=== PATIENT | female | born 1960 | race Caucasian/White ===

== ENCOUNTER 2016-09-01 12:07 | Emergency (ER) | payer OTHER ==
[~2016-09-01 12:07] MED LIST: ALEVE220 M1 PO; ALPRAZOLAM0.25 M1 PO; AMOXICILLIN500 M2 PO; ATENOLOL100 M1 PO; AUGMENTIN 875 M1 TAB PO; AUGMENTIN 875875 MG PO; BIOTENE473 ML PO; BISACODYL5 M1 PO; BLM PO; CHANTIX STARTING1 MG PO; CLEOCIN HCL300 MG PO; CYANOCOBAL1000 MCG/2 IM; CYMBALTA30 M1 PO; DIAZEPAM10 MG PO; HYDROCHLOROTH12.5 M3 PO; HYDROMORPHONE HC2 MG PO; IBUPROFEN600 M1 PO; MARINOL2.5 M1 PO; MORPHINE SU; OXYCODONE5 MG PO; PERCOCET 5-3251 EACH PO; PRINIVIL10 M1 PO; SAVELLA 50MG50 MG PO; SENNA PLUS TAB1 EACH PO; TRAMADOL-ACETA1 EACH PO; ZOLPIDEM TARTRA10 M1 PO
--- NOTE | 2016-09-01 12:58 | ED GENERAL ADULT ---
History of Present Illness General Chief Complaint: Chest Pain Stated Complaint: CHEST PAIN, SOB Source: patient, friend Exam Limitations: poor historian Vital Signs & Intake/Output Vital Signs & Intake/Output Vital Signs Date Time Temp Pulse Resp B/P Pulse O2 O2 Flow FiO2 Ox Delivery Rate 09/01 1627 97.0 72 18 142/81 99 Room Air 09/01 1443 96.8 74 20 122/81 100 Room Air 09/01 1308 95 Room Air 09/01 1216 97.1 99 18 142/87 100 Room Air Allergies Coded Allergies: NO KNOWN ALLERGIES (03/03/16) clams (03/05/16) Reconcile Medications Alprazolam 0.25 MG TABLET 1 TAB PO BIDP PRN ANXIETY (Reported) Amoxicillin/Potassium Clav (Augmentin 875-125 Tablet) 875 MG-125 MG TABLET 1 TAB PO BID PNEUMONIA Atenolol 100 MG TABLET 1 TAB PO DAILY HIGH BLOOD PRESSURE PLEASE TAKE IT IF BP IS > 100/80, AND PULSE >60 Cyanocobalamin (Vitamin B-12) (Cyanocobalamin Injection) 1,000 MCG/ML VIAL 1 ML IM Q30D SUPPLEMENT (Reported) Diazepam 10 MG TABLET 1 TAB PO QPM SLEEP (Reported) Duloxetine Hydrochloride (Cymbalta) 30 MG CAPSULE.DR 30 MG PO DAILY depression Hydrochlorothiazide 12.5 MG CAPSULE 1 CAP PO DAILY HIGH BLOOD PRESSURE ( Reported) Lisinopril (Prinivil) 10 MG TABLET 1 TAB PO DAILY HEART (Reported) Naproxen Sodium (Aleve) 220 MG CAPSULE 2 TAB PO DAILY PRN PAIN (Reported) Oxycodone HCl 5 MG TABLET 1 TAB PO Q4-6 PAIN (Reported) Tramadol HCl/Acetaminophen (Tramadol-Acetaminophn 37.5-325) 37.5 MG-325 MG TABLET 1 TAB PO Q6 PAIN (Reported) Zolpidem Tartrate 10 MG TABLET 1 TAB PO QPM SLEEP (Reported) Triage Note: PT TO TRIAGE WITH MID STERNAL HEAVINESS AND PAIN SINCE THIS MORNING. PT HAS A EXTENSIVE HX INCLUDING 2 LOBES REMVOED FROM RIGHT LUNG DUE TO CA. PT STATES SHE HAS BEEN SOB INCREASING ON EXERTION SICNE . PT DENIES FEVERS, BUT HAS A CHRONIC COUGH. PT BROUGHT DIRECTLY TO 8 AFETR EKG. PT HAD DENTAL WORK ON MONDAY AND HAS HAD POOR PO INTAKE DUE TO PAIN. PT STATES SHE HAS A HX OF KIDNEY FAILURE DUE TO SIMILAR SITUATION TODAY Triage Nurses Notes Reviewed? yes Onset: Abrupt Duration: day(s): Timing: recent history HPI: 09/01/16 56-year-old female presents to the emergency department complaining of chest pain and difficulty breathing. The patient has a history of chronic pain and she has a pain pump stimulator. She also has poor dentition. She status post screws inserted into her lower jaw. The onset of the symptoms were abrupt, the duration was 12 hours ago, the severity is significant as her symptoms required to come to the emergency department for care. She has jaw pain, difficulty breathing, and chest wall pain. Past History Travel History Traveled to [place] past 21 day No Medical History Any Pertinent Medical History? see below for history Neurological: migraine Cardiovascular: hypertension Respiratory: COPD (not on home oxygen), pneumonia Musculoskeletal: rheumatoid arthritis, fibromyalgia chronic hip pain pain pump in her right lower quadrant of abdomen Psychiatric: anxiety Endocrine: osteoporosis Blood Disorders: anemia, LOW IRON Cancer(s): lung cancer (adenocarcinoma) Other Medical Hx: History of shingles History of MRSA: No History of VRE: No History of CDIFF: No Pneumonia Vaccine: 03/12/14 Surgical History Surgical History: hip replacement (both. In 2000), hysterectomy, lung cancer status post right upper lobe wedge resection in 2004 Psychosocial History Who do you live with Spouse Services at Home None What is your primary language [place] Family History Family History, If Any: MOTHER Cervical cancer FH: diabetes mellitus FATHER FH: COPD (chronic obstructive pulmonary disease) FH: rheumatoid arthritis Ischemic heart disease (IHD) Hx Contributory? No Review of Systems Review of Systems Constitutional: Denies: fever. EENTM: Reports: mouth pain, tooth pain. Denies: visual changes. Respiratory: Reports: see HPI. Cardiovascular: Reports: see HPI. GI: Denies: abdominal pain. Genitourinary: Reports: no symptoms. Musculoskeletal: Reports: no symptoms. Skin: Denies: rash. Neurological/Psychological: Reports: no symptoms. Hematologic/Endocrine: Reports: no symptoms. Physical Exam Physical Exam General Appearance: alert, awake, anxious, mild distress Head: tenderness, pain to the lower floor the mouth anteriorly, no abscess, no brawny edema, no tongue protrusion Eyes: Bilateral: normal appearance, PERRL, EOMI. Ears, Nose, Throat: normal pharynx Neck: normal inspection, supple, full range of motion Respiratory: normal breath sounds, chest non-tender, no respiratory distress Cardiovascular: regular rate/rhythm Peripheral Pulses: 4+ radial (R), 4+ radial (L) Gastrointestinal: soft, non-tender Back: decreased range of motion Extremities: normal range of motion Neurologic/Psych: no motor/sensory deficits, awake, alert, oriented x 3 Skin: intact, normal color, warm/dry Core Measures ACS in differential dx? No CVA/TIA Diagnosis: No Severe Sepsis Present: No Septic Shock Present: No Progress Differential Diagnoses I considered the following diagnoses in my evaluation of the patient: [Acute coronary syndrome, pneumonia, dehydration, abscess] Plan of Care: Orders Procedure Date/time Status EKG 09/01 1708 Active TROPONIN LEVEL 09/01 1251 Complete PROTHROMBIN TIME 09/01 1251 Complete D-DIMER 09/01 1251 Complete COMPREHENSIVE METABOLIC PANEL 09/01 1251 Complete CBC WITHOUT DIFFERENTIAL 09/01 1251 Complete EKG 09/01 1207 Active Laboratory Tests 09/01/16 1258: Anion Gap 14, Estimated GFR 43 L, BUN/Creatinine Ratio 33.1 H, Glucose 115 H, Calcium 9.6, Total Bilirubin 0.5, AST 23, ALT 28, Alkaline Phosphatase 117, Troponin I < 0.01, Total Protein 9.4 H, Albumin 4.0, Globulin 5.4 H, Albumin/ Globulin Ratio 0.7 L, PT 13.7 H, INR 1.31 H, D-Dimer 860 H, CBC w Diff NO MAN DIFF REQ, RBC 4.13 L, MCV 75.3 L, MCH 24.0 L, RDW 16.5 H, MPV 8.4, Gran % 74.8, Lymphocytes % 16.4 L, Monocytes % 7.8, Eosinophils % 0.5, Basophils % 0.5, Absolute Granulocytes 3.3, Absolute Lymphocytes 0.7 L, Absolute Monocytes 0.3, Absolute Eosinophils 0, Absolute Basophils 0, PUBS MCHC 31.9 L PATIENT: NIRMAL JEREZ PRESENT AGE: 56 PATIENT ACCOUNT NO: [id number] : 62 LOCATION: [facility] ORDERING PHYSICIAN: ARSENIO KAUR DO SERVICE DATE: 09/01/16-1441 EXAM TYPE: CAT - CTA CHEST-PULMONARY EMBOLISM EXAMINATION: CT ANGIOGRAM OF THE CHEST WITH AND WITHOUT CONTRAST (CT PULMONARY ANGIOGRAM FOR PE) CLINICAL INFORMATION: Elevated d-dimer. Shortness of breath. COMPARISON: Portions of a previous chest CT 08/25/15 TECHNIQUE: Prior to contrast administration, noncontrast localization images were obtained. Subsequently, multidetector volumetric imaging was performed from the thoracic inlet to below the diaphragms following the administration of 81 mL Optiray 350 intravenous contrast. No contrast reaction reported Sagittal, coronal, and MIP oblique sagittal reformatted images were obtained on the CT workstation, uploaded to PACS, and reviewed. 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 Irregular opacity periphery right midlung. QUALITY OF STUDY/CONTRAST BOLUS: Satisfactory. PULMONARY ARTERIES: No pulmonary embolus demonstrated THORACIC AORTA: No thoracic aortic aneurysm or dissection demonstrated. The enhancement timing was not optimal for the aorta. LUNG: There appears to be metallic suture in the medial right upper chest. This may represent findings from right upper lobectomy or partial pulmonary resection. The trachea is deviated to the right superiorly. There is some irregularity of the right mainstem bronchus. There is irregular density in the right apex with bronchiectasis and masslike components. There are areas of airway thickening and irregular parenchymal density in the right midlung. There are some areas of airway thickening and tree-in-bud opacity in the ventral aspect of the right lower lung. There are some apical opacities on the left. The masslike and irregular opacities in the right apex appears similar to the previous study. The densities in the right midlung appears similar. The infiltrates with airway thickening and tree-in-bud opacity in the most ventral lower right lung are new since 08/25/15. The left apical changes are similar to the previous study. A small pleural-based area of thickening posterolaterally in the left mid chest is unchanged (series 5, image 23). PLEURA: As described there is extensive irregular pleural thickening in the apices greater on the right. There is no significant pleural fluid. MEDIASTINUM: The upper mediastinum is shifted to the right. No measurable mediastinal or hilar adenopathy. No pericardial fluid. No definite abnormality of the esophagus. No evidence of septal bowing or right heart strain. CHEST WALL/AXILLA: There is severe pectus excavatum which deforms the heart. There is a catheter within the lower thoracic spinal canal. There is a small amount of gas within some of the vessels in the right axilla. This may be iatrogenic. OSSEOUS STRUCTURES: No associated bone destruction in the regions of apical thickening. UPPER ABDOMEN: Limited assessment. No suspicious mass demonstrated No reflux of contrast into the hepatic veins to suggest elevated right heart pressures. (ARSENIO KAUR DO) Initial ED EKG: SINUS TACH, NSST Prior EKG: unchanged Repeat EKG: unchanged Departure Departure Disposition: HOME OR SELF CARE Condition: Stable Clinical Impression Primary Impression: Chest wall pain Secondary Impressions: Dehydration, Pneumonia Referrals: VALERI ROSSI,EDMOND Johnson (PCP/Family) Departure Forms: Customer Survey General Discharge Information Prescriptions: Current Visit Scripts Amoxicillin/Potassium Clav (Augmentin 875-125 Tablet) 1 TAB PO BID #20 TAB Comments 09/01/16 5:23 PM Patient's labs reveal dehydration. Troponin is negative, d-dimer was elevated; but CTA was negative for PE. The patient did receive a full liter of IV fluids before the CTA. The pain had started more than 12 hours prior to arrival. Second EKG is unchanged. I will treat her with Augmentin. She will follow-up with her doctor on Monday, drink lots of fluids, continue her pain medication. Return to the ED if worse. Critical Care Note Critical Care Note Critical Care Time: non-applicable
[2016-09-01 13:12] LABS: ABSOLUTE BASOPHIL COUNT 0 /CUMM (0.0-0.2); ABSOLUTE EOSINOPHIL COUNT 0 /CUMM (0.0-0.7); ABSOLUTE GRANULOCYTE CT 3.3 /CUMM (1.4-6.5); ABSOLUTE LYMPH COUNT 0.7 /CUMM (1.2-3.4); ABSOLUTE MONOCYTE COUNT 0.3 /CUMM (0.10-0.60); BASOPHIL % 0.5 % (0.0-2.0); EOSINOPHIL % 0.5 % (0-5); GRANULOCYTE % 74.8 % (42.2-75.2); HEMATOCRIT 31.1 % (37-47); MEAN CORPUSCULAR HGB CONC 31.9 G/DL (33.0-37.0); MEAN CORPUSCULAR VOLUME 75.3 FL (81.0-99.0); MEAN PLATELET VOLUME 8.4 FL (7.4-10.4); PLATELET COUNT 281 /CUMM (130-400); RBC DISTRIBUTION WIDTH 16.5 % (11.5-14.5); RED BLOOD CELL CT 4.13 /CUMM (4.20-5.40); WHITE BLOOD CELL COUNT 4.4 /CUMM (4.8-10.8)
[2016-09-01 13:19] LABS: PT 13.7 SEC (9.4-12.5)
--- NOTE | 2016-09-01 14:03 | RADIOLOGY REPORT ---
EXAMINATION: XR PORTABLE CHEST CLINICAL INFORMATION: Shortness of breath COMPARISON: Chest radiograph 11/27/[address] chest 08/25/2015. TECHNIQUE: Portable AP 80 degrees upright view of the chest was obtained. FINDINGS: The cardiac silhouette is at the upper limits of normal in size, unchanged. The focal right mid lung and right apical scarring and elevation of the right hilum is similar to 11/27/2014. Stable tenting of the right hemidiaphragm. No acute consolidation or atelectasis is seen. IMPRESSION: Chronic right mid and upper lung changes with volume loss. No superimposed consolidation or atelectasis is seen.
[2016-09-01] MEDS ORDERED: OXYCODONE HCL5 M1 PO (14:05)
[2016-09-01] MEDS ORDERED: DIAZEPAM10 M1 PO (14:05)
[2016-09-01 16:27] VITALS: BP 142/81
--- NOTE | 2016-09-01 16:40 | CT SCAN REPORT ---
EXAMINATION: CT ANGIOGRAM OF THE CHEST WITH AND WITHOUT CONTRAST (CT PULMONARY ANGIOGRAM FOR PE) CLINICAL INFORMATION: Elevated d-dimer. Shortness of breath. COMPARISON: Portions of a previous chest CT 08/25/15 TECHNIQUE: Prior to contrast administration, noncontrast localization images were obtained. Subsequently, multidetector volumetric imaging was performed from the thoracic inlet to below the diaphragms following the administration of 81 mL Optiray 350 intravenous contrast. No contrast reaction reported Sagittal, coronal, and MIP oblique sagittal reformatted images were obtained on the CT workstation, uploaded to PACS, and reviewed. 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 Irregular opacity periphery right midlung. QUALITY OF STUDY/CONTRAST BOLUS: Satisfactory. PULMONARY ARTERIES: No pulmonary embolus demonstrated THORACIC AORTA: No thoracic aortic aneurysm or dissection demonstrated. The enhancement timing was not optimal for the aorta. LUNG: There appears to be metallic suture in the medial right upper chest. This may represent findings from right upper lobectomy or partial pulmonary resection. The trachea is deviated to the right superiorly. There is some irregularity of the right mainstem bronchus. There is irregular density in the right apex with bronchiectasis and masslike components. There are areas of airway thickening and irregular parenchymal density in the right midlung. There are some areas of airway thickening and tree-in-bud opacity in the ventral aspect of the right lower lung. There are some apical opacities on the left. The masslike and irregular opacities in the right apex appears similar to the previous study. The densities in the right midlung appears similar. The infiltrates with airway thickening and tree-in-bud opacity in the most ventral lower right lung are new since 08/25/15. The left apical changes are similar to the previous study. A small pleural-based area of thickening posterolaterally in the left mid chest is unchanged (series 5, image 23). PLEURA: As described there is extensive irregular pleural thickening in the apices greater on the right. There is no significant pleural fluid. MEDIASTINUM: The upper mediastinum is shifted to the right. No measurable mediastinal or hilar adenopathy. No pericardial fluid. No definite abnormality of the esophagus. No evidence of septal bowing or right heart strain. CHEST WALL/AXILLA: There is severe pectus excavatum which deforms the heart. There is a catheter within the lower thoracic spinal canal. There is a small amount of gas within some of the vessels in the right axilla. This may be iatrogenic. OSSEOUS STRUCTURES: No associated bone destruction in the regions of apical thickening. UPPER ABDOMEN: Limited assessment. No suspicious mass demonstrated No reflux of contrast into the hepatic veins to suggest elevated right heart pressures. IMPRESSION: No pulmonary embolus demonstrated. There are areas of lung destruction and presumed postinflammatory scarring with volume loss in the apices greater on the right. I suspect previous surgery on the right. There is an area of probable acute pneumonia in the ventral lower right lung which was not present 08/25/15. Recommend optimal medical management and follow-up chest CT in 3-6 months VTE: negative
[2016-09-01] MEDS ORDERED: AUGMENTIN 875-1 EACH PO (17:26)
== END 2016-09-01 17:55 ==
LOC: ERH 12:07
PROVIDERS: Emergency Medicine
DX: J18.9 Pneumonia, unspecified organism (principal); E86.0 Dehydration; R07.89 Other chest pain
CPT/HCPCS: 93005; 93010; 96374

== ENCOUNTER 2017-07-09 11:40 | Observation (INO) | payer OTHER ==
[~2017-07-09] VITALS: Ht 157.5 cm; Wt 39.5 kg
[~2017-07-09 11:40] MED LIST changes: +AUGMENTIN 875-1 EACH PO; +DIAZEPAM10 M1 PO; +OXYCODONE HCL5 M1 PO
--- NOTE | 2017-07-09 13:05 | ED CARDIAC/CP/PALPITATIONS ---
History of Present Illness General Chief Complaint: General Adult Stated Complaint: "SICK", CHEST TIGHTNESS, +V Source: patient, family, old records Exam Limitations: no limitations Vital Signs & Intake/Output Vital Signs & Intake/Output Vital Signs Date Time Temp Pulse Resp B/P B/P Pulse O2 O2 Flow FiO2 Mean Ox Delivery Rate 07/10 0925 162/60 07/10 0620 98.4 50 20 148/80 99 Room Air 07/09 2247 98.1 52 20 164/86 99 Room Air 07/09 1827 98.4 56 20 156/80 100 Room Air 07/09 1704 98.5 62 20 128/70 100 Room Air 07/09 1455 97.8 65 20 168/85 97 Room Air ED Intake and Output 07/10 0000 07/09 1200 Intake Total 640 Output Total Balance 640 Intake, IV 400 Intake, Oral 240 Patient 32.205 kg Weight Weight Bed scale Measurement Method Allergies Coded Allergies: clams (UNKNOWN 07/09/17) Reconcile Medications Alprazolam 0.25 MG TABLET 1 TAB PO BIDP PRN ANXIETY (Reported) Dronabinol (Marinol) 10 MG CAPSULE 1 CAP PO BID STIMULANT (Reported) Hydrochlorothiazide 12.5 MG CAPSULE 1 CAP PO DAILY HIGH BLOOD PRESSURE ( Reported) Lisinopril 20 MG TABLET 1 TAB PO DAILY HTN (Reported) Naproxen Sodium (Aleve) 220 MG CAPSULE 2 TAB PO DAILY PRN PAIN (Reported) Oxycodone HCl 5 MG TABLET 1 TAB PO Q4-6 PAIN (Reported) Tramadol HCl/Acetaminophen (Tramadol-Acetaminophn 37.5-325) 37.5 MG-325 MG TABLET 1 TAB PO Q6 PAIN (Reported) Zolpidem Tartrate 10 MG TABLET 1 TAB PO QPM SLEEP (Reported) Triage Note: PT TO ED FOR C/C OF NAUSE AND VOMITING X A COUPLE TIMES TODAY AND LAST NIGHT. POOR PO INTAKE, +DIARRHEA. COUGH, BODY ACHES, CHILLS. +CHEST PAIN THAT IS WORSE LAYING DOWN. Triage Nurses Notes Reviewed? yes HPI: 57F PMH Adenocarcinoma of the right lung status post resection and chemotherapy, Sjogren syndrome, herpes zoster, fibromyalgia, chronic pain status post intrathecal pump, COPD not on home O2, hypertension, anxiety, depression presenting with 2 days of intractable nausea and vomiting. Has been unable to keep down any food or water for the past 1.5 days, appears ill, weak, and lethargic. Has abdominal cramping from repeated vomiting. Vomited bilious liquid at bedside. Had large amount of liquid stool in 1 BM this morning. Denies fever, chills, AMS, headache, chest pain, SOB, dysuria. Past History Travel History Traveled to [place] past 21 day No Medical History Any Pertinent Medical History? see below for history Neurological: migraine EENT: NONE Cardiovascular: hypertension Respiratory: COPD (not on home oxygen), pneumonia Gastrointestinal: NONE Hepatic: NONE Renal: NONE Musculoskeletal: rheumatoid arthritis, fibromyalgia chronic hip pain pain pump in her right lower quadrant of abdomen Psychiatric: anxiety Endocrine: osteoporosis Blood Disorders: anemia, LOW IRON Cancer(s): lung cancer (adenocarcinoma) Other Medical Hx: History of shingles History of MRSA: No History of VRE: No History of CDIFF: No Surgical History Surgical History: hip replacement (both. In 2000), hysterectomy, lung cancer status post right upper lobe wedge resection in 2004 Psychosocial History Who do you live with Spouse Services at Home None What is your primary language Belarusian Tobacco Use: Current Daily Use Daily Tobacco Use Amount/Type: => 5 Cigarettes daily ETOH Use: denies use Illicit Drug Use: denies illicit drug use Family History Family History, If Any: MOTHER Cervical cancer FH: diabetes mellitus FATHER FH: COPD (chronic obstructive pulmonary disease) FH: rheumatoid arthritis Ischemic heart disease (IHD) Hx Contributory? No Review of Systems Review of Systems Constitutional: Reports: no symptoms. EENTM: Reports: no symptoms. Respiratory: Reports: no symptoms. Cardiovascular: Reports: no symptoms. GI: Reports: see HPI. Genitourinary: Reports: no symptoms. Musculoskeletal: Reports: no symptoms. Skin: Reports: no symptoms. Neurological/Psychological: Reports: no symptoms. Hematologic/Endocrine: Reports: no symptoms. Immunologic/Allergic: Reports: no symptoms. All Other Systems: Reviewed and Negative Physical Exam Physical Exam General Appearance: well developed/nourished, cachetic, lethargic, moderate distress Head: atraumatic, normal appearance Eyes: Bilateral: normal appearance, pale conjunctivae. Ears, Nose, Throat: dry mucous membranes Neck: normal inspection, full range of motion Respiratory: normal breath sounds, no respiratory distress Cardiovascular: regular rate/rhythm Gastrointestinal: soft, non-tender, hyperactive bowel sounds Back: normal inspection, normal range of motion Extremities: normal inspection, normal capillary refill, normal range of motion Neurologic/Psych: awake, alert, oriented x 3, normal mood/affect Skin: normal color, warm/dry Core Measures ACS in differential dx? No CVA/TIA Diagnosis No Sepsis Present: No Sepsis Focused Exam Completed? No Progress Differential Diagnosis: AMI, aortic dissection, atrial fibrillation, cholecystitis, CHF/pulm edema, costochondritis, hyperkalemia, hypovolemia, hyperthyroid, hyperventilation, intracranial hemorrhage, musculoskeletal pain, myocarditis, pancreatitis, pericarditis, pneumonia, pneumothorax, PSVT, pulmonary embolism, PUD/GERD, PVCs/PACs, respiratory failure, rib fracture, sepsis, unstable angina, V-fib/V-Tach, WPW syndrome Plan of Care: Orders Procedure Date/time Status Regular Diet 07/10 B Active Change service to 07/10 0832 Active BASIC ELECTROLYTES PLUS BUN&CR 07/10 0600 Complete Clear Liquid Diet 07/09 D Complete Vital Signs 07/09 1831 Active Teach/Educate 07/09 1831 Active Pain Treatment and Response 07/09 1831 Active Nutritional Intake, Monitor 07/09 1831 Active Isolation 07/09 1831 Active Intake & Output 07/09 1831 Active Patient Care Conference 07/09 1831 Active Activity/Ambulation 07/09 1831 Active Pathway - chart 07/09 1650 Active House Staff 07/09 1650 Active Patient Data 07/09 1650 Active Code Status 07/[address] in observation 07/09 1456 Active ED Holding Orders 07/09 1456 Active Vital Signs 07/09 1456 Active Code Status 07/09 1456 Complete Patient Data 07/09 1455 Active Add-on Test (ER Only) 07/09 1403 Active Intake & Output 07/09 1312 Active LIPASE 07/09 1310 Complete TRC EVALUATION (GEN) 07/09 UNK Active PT Evaluate & Treat 07/09 UNK Active VTE Mechanical Prophylaxis 07/09 UNK Active Vital Signs 07/09 UNK Complete NUTRITIONAL CONSULT 07/09 UNK Active Current Medications Sig/Brown Start time Last Medication Dose Stop Time Status Admin Ondansetron HCl 4 MG Q6 07/10 1200 AC 07/10 (Zofran) 1209 Promethazine HCl 25 MG Q4 PRN 07/10 1015 AC (Phenergan 25MG 07/17 1014 Tablet) Enoxaparin Sodium 40 MG DAILY 07/10 1000 AC 07/10 (Lovenox) 0925 Hydrochlorothiazide 12.5 MG DAILY 07/10 1000 AC 07/10 (Hydrodiuril) 0925 Lisinopril 20 MG DAILY 07/10 1000 AC 07/10 (Prinivil) 0925 Alprazolam 0.25 MG BID PRN 07/09 2200 AC 07/10 (Xanax) 07/16 215 0929 Dronabinol 10 MG BID 07/09 2200 AC 07/10 (Marinol) 0925 Zolpidem Tartrate 10 MG QPM 07/09 2200 AC 07/09 (Ambien) 2243 Albuterol Sulfate 3 ML Q6 PRN 07/09 2100 AC (Proventil) Nicotine 21 MG DAILY 07/09 1924 AC 07/10 (Nicoderm) 0925 Acetaminophen 650 MG Q6P PRN 07/09 1700 AC 07/10 (Tylenol) 0929 Oxycodone HCl 5 MG Q6P PRN 07/09 1700 AC 07/10 (Roxicodone) 0929 Sodium Chloride 1,000 ML .[id number] 07/09 1700 AC 07/10 (Normal Saline 0.9%) 0541 Laboratory Tests 07/10/17 0826: Anion Gap 10, Estimated GFR > 60, BUN/Creatinine Ratio 20.0 Initial ED EKG: NSR, no ST T wave changes Departure Departure Disposition: STILL A PATIENT Condition: Stable Clinical Impression Primary Impression: Acute gastroenteritis Secondary Impressions: Dehydration, Unable to eat, Weakness Referrals: Sha ROSSI,Onesimo Johnson (PCP/Family) Departure Forms: Customer Survey General Discharge Information Observation Note Spoke With: Isabel ROSSI,Andria Mcarthur Physician Advisor Notified: ARSENIO KAUR DO Place Patient In: Non-ED OBS Care Area Rationale for Observation: My rational for observation is as follows acute gastroenteritis, unable to take PO, intractable nausea and vomiting, severe dehydration, cachectic with BMI 15.9 , unable to ambulate due to weakness, will bring in as 23 hour observation, IV hydration, replete electrolytes, nutrition consult. Also patient has lab evidence of paraproteinemia and will require a hematology consult for evaluation. Critical Care Note Critical Care Note Critical Care Time: 30-74 min
[2017-07-09 13:29] LABS: ABSOLUTE BASOPHIL COUNT 0 /CUMM (0.0-0.2); ABSOLUTE EOSINOPHIL COUNT 0 /CUMM (0.0-0.7); ABSOLUTE GRANULOCYTE CT 2.5 /CUMM (1.4-6.5); ABSOLUTE LYMPH COUNT 0.5 /CUMM (1.2-3.4); ABSOLUTE MONOCYTE COUNT 0.2 /CUMM (0.10-0.60); BASOPHIL % 0 % (0.0-2.0); EOSINOPHIL % 0.2 % (0-5); GRANULOCYTE % 77.2 % (42.2-75.2); HEMATOCRIT 32.3 % (37-47); MEAN CORPUSCULAR HGB 22.3 PG (27.0-31.0); MEAN CORPUSCULAR HGB CONC 31.7 G/DL (33.0-37.0); MEAN CORPUSCULAR VOLUME 70.3 FL (81.0-99.0); MEAN PLATELET VOLUME 9.7 FL (7.4-10.4); PLATELET COUNT 232 /CUMM (130-400); RBC DISTRIBUTION WIDTH 17.3 % (11.5-14.5); RED BLOOD CELL CT 4.59 /CUMM (4.20-5.40); WHITE BLOOD CELL COUNT 3.2 /CUMM (4.8-10.8)
[2017-07-09] MEDS ORDERED: LISINOPRIL20 M1 PO (16:53)
[2017-07-09] MEDS ORDERED: MARINOL10 MG PO (16:54)
--- NOTE | 2017-07-09 16:57 | History & Physical ---
Abdulaziz Garay 07/09/17 7286: General Information and HPI MD Statement: I have seen and personally examined NIRMAL JEREZ and documented this H&P. The patient is a 57 year old F who presented with a patient stated chief complaint of intractable nausea, vomiting, abdominal pain. 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 Patient reports that her son was sick with nausea, vomiting, gastroenteritis. She started having nausea and vomiting for the last 2 days. She reports nonbloody, bilious, green colored vomitus, no blood in vomitus associated with decreased oral intake. She couldn't keep anything. Also associated with generalized abdominal cramps. She reports one episode of loose watery diarrhea, denies any blood in stool. Denies any sick contact exposure, travel history, foot poisoning. Patient reports shortness of breath, cough, chills, generalized weakness and lethargic. Also reports chest heaviness one episode this morning. Denies any palpitations. Denies any headache, weakness, sensory changes, gait or vision abnormality, lower extremity swelling. Of note patient has low BMI and paraproteinemia for years. She is on appetite stimulant Marinol 10 mg twice daily. She is current smoker one pack per day. She has history of COPD not on home oxygen. She has chronic pain from Sjogren's , rheumatoid arthritis, fibromyalgia status post using morphine pain pump. Denies any alcohol abuse and other illicit drug abuse. Allergies/Medications Allergies: Coded Allergies: clams (UNKNOWN 07/09/17) Compliance With Home Meds: GOOD Past History Travel History Traveled to [place] past 21 day No Medical History Neurological: migraine EENT: NONE Cardiovascular: hypertension Respiratory: COPD (not on home oxygen), pneumonia Gastrointestinal: NONE Hepatic: NONE Renal: NONE Musculoskeletal: rheumatoid arthritis, fibromyalgia chronic hip pain pain pump in her right lower quadrant of abdomen Psychiatric: anxiety Endocrine: osteoporosis Blood Disorders: anemia, LOW IRON Cancer(s): lung cancer (adenocarcinoma) Other Medical Hx: History of shingles History of MRSA: No History of VRE: No History of CDIFF: No Surgical History Surgical History: hip replacement (both. In 2000), hysterectomy, lung cancer status post right upper lobe wedge resection in 2004 Past Family/Social History Family History Relations & Conditions if any MOTHER Cervical cancer FH: diabetes mellitus FATHER FH: COPD (chronic obstructive pulmonary disease) FH: rheumatoid arthritis Ischemic heart disease (IHD) Psychosocial History Who Do You Live With? FAMILY Services at Home: None Primary Language: Faroese Smoking Status: Current Everyday Smoker ETOH Use: denies use Illicit Drug Use: denies illicit drug use Living Will? no Power of Skidder Driver/HCP? WANTS HIS TO BE POA BUT IT IS NOT ON PAPERS YET Functional Ability ADLs Independent: dressing, eating, toileting, bathing. Ambulation: cane IADLs Independent: shopping, housework, finances, food prep, telephone, medication admin. Review of Systems Review of Systems Constitutional: Reports: chills, malaise, weakness. Denies: diaphoresis, fever, unexplained weight loss. EENTM: Denies: blurred vision, double vision, eye pain, icterus, ear discharge, ear pain, ear redness. Cardiovascular: Denies: chest pain, edema, orthopena, palpitations, peripheral edema, syncope. Respiratory: Reports: cough, short of breath, wheezing. Denies: hemoptysis, orthopnea, sputum production, stridor. GI: Reports: abdominal pain, nausea, vomiting. Denies: bloating, constipation, diarrhea, distention, bowel incontinence, melena. Genitourinary: Denies: discharge, dysuria, frequency, hematuria, hesitation. Musculoskeletal: Reports: back pain. Denies: gout, joint pain, joint swelling. Neurological/Psychological: Denies: anxiety, ataxia, confusion, depressed, dementia, headache, numbness, tingling, tremors. Exam & Diagnostic Data Last 24 Hrs of Vital Signs/I&O Vital Signs Date Time Temp Pulse Resp B/P B/P Pulse O2 O2 Flow FiO2 Mean Ox Delivery Rate 07/09 1827 98.4 56 20 156/80 100 Room Air 07/09 1704 98.5 62 20 128/70 100 Room Air 07/09 1455 97.8 65 20 168/85 97 Room Air 07/09 1312 99 Room Air 07/09 1227 97.7 53 15 180/107 98 Room Air Room Air Intake & Output 07/09 1600 07/09 0800 07/09 0000 Intake Total 0 Output Total Balance 0 Intake, Oral 0 Patient 39.463 kg Weight Weight Reported by Patient Measurement Method Physical Exam General Appearance Alert, Oriented X3, Cooperative, No Acute Distress Skin No Rashes, No Breakdown Skin Temp/Moisture Exam: Warm/Dry Sepsis Skin Exam (color): Normal for Ethnicity HEENT Atraumatic, PERRLA, EOMI, Mucous Membr. moist/pink Neck Supple, No JVD Lymphatic Axillary nl, Cervical nl Cardiovascular Regular Rate, Normal S1, Normal S2, No Murmurs Lungs Normal Air Movement Abdomen Normal Bowel Sounds, Soft, No Tenderness Neurological Strength at 5/5 X4 Ext, Normal Tone, Sensation Intact, Cranial Nerves 3-12 NL Extremities No Clubbing, No Cyanosis, No Edema, Normal Pulses, No Tenderness/ Swelling Vascular Normal Pulses, Pulses Symmetrical Last 24 Hrs of Labs/[place]: Laboratory Tests 07/09/17 1315: Lipase Cancelled 07/09/17 1310: Anion Gap 17 H, Estimated GFR > 60, BUN/Creatinine Ratio 26.3 H, Glucose 134 H, Calcium 9.7, Total Bilirubin 0.4, AST 20, ALT 20, Alkaline Phosphatase 101, Troponin I < 0.01, Total Protein 9.7 H, Albumin 4.6, Globulin 5.1 H, Albumin/ Globulin Ratio 0.9 L, Lipase 37, CBC w Diff NO MAN DIFF REQ, RBC 4.59, MCV 70.3 L, MCH 22.3 L, MCHC 31.7 L, RDW 17.3 H, MPV 9.7, Gran % 77.2 H, Lymphocytes % 16.3 L, Monocytes % 6.3, Eosinophils % 0.2, Basophils % 0, Absolute Granulocytes 2.5, Absolute Lymphocytes 0.5 L, Absolute Monocytes 0.2, Absolute Eosinophils 0, Absolute Basophils 0 07/09/17 0600: CBC w Diff Cancelled, WBC Cancelled, RBC Cancelled, Hgb Cancelled, Hct Cancelled , MCV Cancelled, MCH Cancelled, MCHC Cancelled, RDW Cancelled, Plt Count Cancelled, MPV Cancelled Microbiology 07/09 1233 NASOPHARYN: Influenza Virus A & B Rapid Smear - COMP Assessment/Plan Assessment: This is a 57-year-old female with past medical history significant for right lung adenocarcinoma status post resection and chemotherapy, rheumatoid arthritis , Sjogren's syndrome, fibromyalgia, chronic pain on morphine pain pump, prior herpes zoster infection, migraine headache, COPD not on home oxygen, current smoker, opiate abuse, anxiety, hypertension, insomnia, depression presented to the emergency department with chief complaint of intractable nausea and vomiting for 2 days. Vitals at the time of presentation afebrile, heart rate 65, respiratory rate 15, blood pressure 180/70, saturating at 98 on room air. Pertinent labs WBC 3.2, hemoglobin 10 and hematocrit 32, platelets 232. Sodium 140, potassium 4.4, BUN 27, creatinine 0.8, glucose 134 Troponin negative Flu negative patient received normal saline bolus, zofran and Phenergan in the emergency room. 1. Intractable nausea and vomiting Patient presented with intractable nausea, vomiting, abdominal cramps for 2 days. Off note exposed to son who is sick with gastroenteritis. Vitals were stable in the emergency room. Electrolytes were normal. Patient will be placed under observation status in the general medicine floor for management of gastroenteritis. No other etiology was found. * Place under observation in general medicine floor * Monitor vitals closely every shift * Provide adequate hydration with normal saline * IV antiemetics Zofran, Phenergan * Patient has generalized weakness from nausea and vomiting. * PT consult COPD not on home oxygen-patient reported shortness of breath, cough. However he 's not in acute COPD exacerbation. * Given her smoking history-Will provide respiratory care, inhaler treatments. * Consider pulmonology consult in the a.m. * [facility] Current smoker nicotine dependence-provide nicotine patch 21 mg daily Anxiety continue home medications alprazolam 0.25 mg twice daily when necessary Hypertension continue home medication of hydrochlorothiazide and lisinopril Insomnia continue zolpidem 10 mg at bedtime Right lung adenocarcinoma status post resection and chemotherapy Sjogren's syndrome, rheumatoid arthritis, fibromyalgia, chronic pain on morphine pain pump. Continue oxycodone for breakthrough pain DVT prophylaxis subcutaneous Lovenox Regular diet Full code Pain pathway As Ranked By This Provider Problem List: 1. Weakness 2. Intractable pain 3. Acute gastroenteritis 4. Dehydration 5. Unable to eat 6. Chest wall pain Core Measures/Misc (02/26) Acute Coronary Syndrome ACS Diagnosis: No Congestive Heart Failure Congestive Heart Failure Diagnosis No Cerebrovascular Accident CVA/TIA Diagnosis: No VTE (View Protocol) VTE Risk Factors Age>40 No Mechanical VTE Prophylaxis d/t N/A MechProphylax Ordered No VTE Pharm Prophylaxis d/t NA PharmProphylax ordered Sepsis (View protocol) Sepsis Present: No Andria Hall 07/09/17 1852: General Information and HPI Allergies/Medications Home Med list Alprazolam 0.25 MG TABLET 1 TAB PO BIDP PRN ANXIETY (Reported) Dronabinol (Marinol) 10 MG CAPSULE 1 CAP PO BID STIMULANT (Reported) Hydrochlorothiazide 12.5 MG CAPSULE 1 CAP PO DAILY HIGH BLOOD PRESSURE ( Reported) Lisinopril 20 MG TABLET 1 TAB PO DAILY HTN (Reported) Naproxen Sodium (Aleve) 220 MG CAPSULE 2 TAB PO DAILY PRN PAIN (Reported) Ondansetron HCl (Zofran) 4 MG TABLET 1 TAB PO Q6 NAUSEA Oxycodone HCl 5 MG TABLET 1 TAB PO Q4-6 PAIN (Reported) Promethazine HCl 25 MG TABLET 1 TAB PO Q4P PRN NAUSEA Tramadol HCl/Acetaminophen (Tramadol-Acetaminophn 37.5-325) 37.5 MG-325 MG TABLET 1 TAB PO Q6 PAIN (Reported) Zolpidem Tartrate 10 MG TABLET 1 TAB PO QPM SLEEP (Reported) Attending MD Review Statement Attending Statement Attending MD Statement: examined this patient, discuss w/resident/PA/SUPPLY CHAIN SYSTEMS MANAGER, agreed w/resident/PA/SUPPLY CHAIN SYSTEMS MANAGER, discussed with family, reviewed EMR data (avail) Attending Assessment/Plan: Pt being placed in observation status due to persistent nausea and vomiting since . 57 yr old female with pmh of lung ca s/p resection and chemo, COPD ( active smoker since age 14) not on oxygen, Sjogrens, Fibromyalgia, Rh arthritis on pain pump presented with above complaints. Pt was unable to keep food or fluids down and hence is being placed in observation for hydraion and intractable nausea and vomiting. Will treat with zofran and phenergan for now. Cont on iv fluids. Pt with low BMI secondary to advanced COPD and low appetite- cont on marinol home dose, will get nutrition consult. COPD- will start TRC and respiratory care consult and encouraged pt to quit smoking. Nicotine dependence- will start her on nicotine patch mg daily.
[2017-07-09 18:27] VITALS: BP 156/80
[2017-07-09 22:47] VITALS: BP 164/86
[2017-07-10 06:20] VITALS: BP 148/80
--- NOTE | 2017-07-10 07:29 | PN- Housestaff ---
Montez ROSSI,Simi 07/10/17 0729: Subjective Follow-up For: NAUSEA AND VOMITING WEAKNESS LOW BMI Subjective: PATIENT REPORTS SHE IS STILL NAUSEOUS BUT HAS NOT VOMITED SINCE YESTERDAY.SHE HAS NO PROBLEM BREATHING AND IS 99% ON RA. SHE IS AFEBRILE. PATIENT HAS CHRONIC PAIN FROM SJOGRENS RA AND FIBROMYALGIA Review of Systems Constitutional: Reports: malaise, weakness. Cardiovascular: Reports: no symptoms. Respiratory: Reports: no symptoms. Gastrointestinal: Reports: nausea. Musculoskeletal: Reports: back pain, joint pain, muscle pain. Objective Last 24 Hrs of Vital Signs/I&O Vital Signs Date Time Temp Pulse Resp B/P B/P Pulse O2 O2 Flow FiO2 Mean Ox Delivery Rate 07/10 1412 97.6 60 20 100/60 98 Room Air 07/10 1403 Room Air Room Air 07/10 0925 162/60 07/10 0620 98.4 50 20 148/80 99 Room Air 07/09 2247 98.1 52 20 164/86 99 Room Air Intake & Output 07/10 1600 07/10 0800 07/10 0000 Intake Total 850 840 640 Output Total Balance 850 840 640 Intake, IV 600 600 400 Intake, Oral 250 240 240 Patient 87 lb 0.02 oz 71 lb Weight Weight Bed scale Measurement Method Physical Exam General Appearance: Alert, Oriented X3, Cooperative, No Acute Distress Skin: No Rashes, No Breakdown, No Significant Lesion Skin Temp/Moisture Exam: Warm/Dry Sepsis Skin Exam (color): Normal for Ethnicity Cardiovascular: Regular Rate, Normal S1, Normal S2, No Murmurs Lungs: Clear to Auscultation, Normal Air Movement Abdomen: Normal Bowel Sounds, Soft, No Tenderness, PATIENT VERY THIN Neurological: Normal Speech Extremities: No Clubbing, No Cyanosis, No Edema, Normal Pulses, No Tenderness/ Swelling Current Medications: Current Medications Sig/Brown Start time Last Medication Dose Route Stop Time Status Admin Acetaminophen 650 MG .STK-MED ONE 07/10 927 DC PO 07/10 928 Acetaminophen 650 MG Q6P PRN 07/09 1700 AC 07/10 PO 928 Albuterol Sulfate 3 ML Q6 PRN 07/09 2100 DC INH Alprazolam 0.25 MG BID PRN 07/09 2199 AC 07/10 PO 07/16 2158 09 Dronabinol 10 MG BID 07/09 2199 AC 07/10 PO 0925 Enoxaparin Sodium 40 MG DAILY 07/10 1000 AC 07/10 SC 0925 Hydrochlorothiazide 12.5 MG DAILY 07/10 1000 AC 07/10 PO 0925 Lisinopril 20 MG DAILY 07/10 1000 AC 07/10 PO 0925 Nicotine 21 MG DAILY 07/09 1924 AC 07/10 TOP 0925 Ondansetron HCl 4 MG Q6 07/10 1200 AC 07/10 PO 1709 Ondansetron HCl 4 MG Q6P PRN 07/09 1930 DC 07/10 IV 0800 Oxycodone HCl 5 MG Q6P PRN 07/09 1700 AC 07/10 PO 0929 Promethazine HCl 25 MG Q4 PRN 07/10 1015 AC 07/10 PO 07/17 1014 1539 Promethazine HCl 25 MG Q6-PRN PRN 07/09 1930 DC 07/10 IV 07/16 192 0931 Sodium Chloride 1,000 ML .[id number] 07/09 1700 AC 07/10 IV 0541 Zolpidem Tartrate 10 MG QPM 07/09 2200 AC 07/09 PO 2243 Last 24 Hrs of Lab/[place] Results Last 24 Hrs of Labs/Mics: Laboratory Tests 07/10/17 0826: Anion Gap 10, Estimated GFR > 60, BUN/Creatinine Ratio 20.0 Assessment/Plan Assessment: This is a 57-year-old female with past medical history significant for right lung adenocarcinoma status post resection and chemotherapy, rheumatoid arthritis , Sjogren's syndrome, fibromyalgia, chronic pain on morphine pain pump, prior herpes zoster infection, migraine headache, COPD not on home oxygen, current smoker, opiate abuse, anxiety, hypertension, insomnia, depression presented to the emergency department with chief complaint of intractable nausea and vomiting for 2 days. Vitals at the time of presentation afebrile, heart rate 65, respiratory rate 15, blood pressure 180/70, saturating at 98 on room air. Pertinent labs WBC 3.2, hemoglobin 10 and hematocrit 32, platelets 232. Sodium 140, potassium 4.4, BUN 27, creatinine 0.8, glucose 134 Troponin negative Flu negative Patient received normal saline bolus, zofran and Phenergan in the emergency room. 1. Intractable nausea and vomiting Patient presented with intractable nausea, vomiting, abdominal cramps for 2 days. Off note exposed to son who is sick with gastroenteritis. Vitals were stable in the emergency room. Electrolytes were normal. Patient will be placed under observation status in the general medicine floor for management of gastroenteritis. No other etiology was found. * Placed under observation in general medicine floor * Monitor vitals closely every shift * Provide adequate hydration with normal saline AT A RATE OF 75CC/HR * IV antiemetics Zofran, Phenergan * Patient has generalized weakness from nausea and vomiting. * PT consult for placement as patient is very weak and cachectic. * WE WILL WATCH HOW PATIENT TAKES HER LUNCH AND THEN DECIDE ON DISCHARGE COPD not on home oxygen-patient reported shortness of breath, cough. However he 's not in acute COPD exacerbation. * Given her smoking history-Will provide respiratory care, inhaler treatments. * TRC PRN Current smoker nicotine dependence-provide nicotine patch 21 mg daily Anxiety continue home medications alprazolam 0.25 mg twice daily when necessary Hypertension continue home medication of hydrochlorothiazide and lisinopril Insomnia continue zolpidem 10 mg at bedtime Right lung adenocarcinoma status post resection and chemotherapy Sjogren's syndrome, rheumatoid arthritis, fibromyalgia, chronic pain on morphine pain pump. Continue oxycodone for breakthrough pain DVT prophylaxis subcutaneous Lovenox Regular diet Full code Pain pathway Problem List: 1. Acute gastroenteritis 2. Unable to eat 3. Dehydration Pain Ratin Pain Location: WIDESPREAD Pain Goal: Pain 4 or less Pain Plan: PRN Tomorrow's Labs & Rationales: CBC BEP Christopher Chavarria 07/10/17 1356: Attending MD Review Statement Attending Statement Attending MD Statement: examined this patient, discuss w/resident/PA/TOOL PROGRAMMER, agreed w/resident/PA/TOOL PROGRAMMER, discussed with family, reviewed EMR data (avail), discussed with nursing, discussed with case mgmt, reviewed images, amended to note Attending Assessment/Plan: 57 yr old female with pmh of lung ca s/p resection and chemo, COPD ( active smoker since age 14) not on oxygen, Sjogrens, Fibromyalgia, Rh arthritis on pain pump presented with above complaints. Pt was unable to keep food or fluids down and hence is being placed in observation for hydraion and intractable nausea and vomiting. Patient tolerating small amounts in breakfast. Pt with low BMI secondary to advanced COPD and low appetite- cont on marinol home dose. COPD- c/w TRC and respiratory care consult and encouraged pt to quit smoking. Nicotine dependence- nicotine patch 21 mg daily. Patient is medically stable for discharge if she tolerated her lunch. Provide prn nausea meds at discharge and advised close follow up with PCP in 3-5 days of discharge.
--- NOTE | 2017-07-10 13:15 | Patient Discharge Instructions ---
Discharge Instructions General Discharge Information You were seen/treated for: GASTROENTERITIS Special Instructions: 1. PLEASE FOLLOW UP WITH YOUR PCP IN ONE WEEK Diet Continue normal diet: Yes Activity Full Activity/No Limits: Yes Acute Coronary Syndrome Inclusion Criteria At DC or during hospital stay patient has or had the following: ACS DIAGNOSIS No Discharge Core Measures Meds if any: Prescribed or Continued at Discharge Meds if any: NOT Prescribed or Continued at Discharge Congestive Heart Failure Inclusion Criteria At DC or during hospital stay patient has or had the following: CHF DIAGNOSIS No Discharge Core Measures Meds if any: Prescribed or Continued at Discharge Meds if any: NOT Prescribed or Continued at Discharge Cerebrovascular accident Inclusion Criteria At DC or during hospital stay patient has or had the following: CVA/TIA Diagnosis No Discharge Core Measures Meds if any: Prescribed or Continued at Discharge Meds if any: NOT Prescribed or Continued at Discharge Venous thromboembolism Inclusion Criteria VTE Diagnosis No VTE Type NONE VTE Confirmed by (Test) NONE Discharge Core Measures - Per Current guidelines, there needs to be overlap - treatment for the first 5 days of Warfarin therapy. - If discharged on Warfarin prior to 5 days of - overlap therapy, the patient will need to be - assessed for post discharge needs including - *Post discharge parental anticoagulation - *Warfarin and/or parental anticoagulation education - *Follow up date to check INR post discharge At least 5 days overlap therapy as Inpatient No Meds if any: Prescribed or Continued at Discharge Note: Overlap Therapy is Warfarin and Anticoagulant Meds if any: NOT Prescribed or Continued at Discharge
[2017-07-10 14:12] VITALS: BP 100/60
[2017-07-11 00:35] VITALS: BP 112/64
[2017-07-11 06:50] VITALS: BP 108/68
[2017-07-11 08:32] VITALS: BP 108/68
--- NOTE | 2017-07-11 09:06 | PN- Housestaff ---
Montez ROSSI,Simi 07/11/17 0905: Subjective Follow-up For: NAUSEA AND VOMITING WEAKNESS LOW BMI Subjective: patient still nauseous today but has not vomited since she came up from the ED TWO DAYS ago. She is not eating much still. She denies any chest or abdominal pain but does complain of widespread muscle pain related to her chronic illnesses. Review of Systems Constitutional: Reports: weakness. Gastrointestinal: Reports: nausea. Musculoskeletal: Reports: back pain, joint pain, muscle pain. Objective Last 24 Hrs of Vital Signs/I&O Vital Signs Date Time Temp Pulse Resp B/P B/P Pulse O2 O2 Flow FiO2 Mean Ox Delivery Rate 07/11 0832 108/68 07/11 0650 97.5 57 20 108/68 97 Room Air 07/11 0125 55 100 Room Air 07/11 0035 97.6 47 20 112/64 97 Room Air Intake & Output 07/11 1600 07/11 0800 07/11 0000 Intake Total 705 1300 Output Total Balance 705 1300 Intake, IV 525 600 Intake, Oral 180 700 Physical Exam General Appearance: Alert, Oriented X3, Cooperative, No Acute Distress Skin: No Rashes, No Breakdown, No Significant Lesion Cardiovascular: Regular Rate, Normal S1, Normal S2, No Murmurs Lungs: Clear to Auscultation, Normal Air Movement Abdomen: Normal Bowel Sounds, Soft, No Tenderness, No Hepatospenomegaly, No Masses Extremities: No Clubbing, No Cyanosis, No Edema, Normal Pulses, No Tenderness/ Swelling Current Medications: Current Medications Sig/Brown Start time Last Medication Dose Route Stop Time Status Admin Acetaminophen 650 MG .STK-MED ONE 07/11 828 DC PO 07/11 0830 Acetaminophen 650 MG Q6P PRN 07/09 1700 DCD 07/11 PO 0832 Alprazolam 0.25 MG BID PRN 07/09 2200 DCD 07/11 PO / 2159 0832 Dronabinol 10 MG BID 07/09 2199 DCD 07/11 PO 0848 Enoxaparin Sodium 40 MG DAILY 07/10 1000 DCD 07/11 SC 0832 Hydrochlorothiazide 12.5 MG DAILY 07/10 1000 DCD 07/11 PO 0831 Lisinopril 20 MG DAILY 07/10 1000 DCD 07/11 PO 0832 Nicotine 21 MG DAILY 07/09 1924 DCD 07/11 TOP 0832 Ondansetron HCl 4 MG Q6 07/10 1200 DCD 07/11 PO 1054 Oxycodone HCl 5 MG Q6P PRN 07/09 1700 DCD 07/11 PO 0832 Promethazine HCl 25 MG Q4 PRN 07/10 1015 DCD 07/11 PO 07/17 1014 1229 Sodium Chloride 1,000 ML .[id number] 07/09 1700 DC 07/10 IV 1919 Zolpidem Tartrate 10 MG QPM 07/09 2200 DCD 07/10 PO 2039 Last 24 Hrs of Lab/[place] Results Last 24 Hrs of Labs/Mics: Laboratory Tests 07/11/17 0805: Anion Gap 13, Estimated GFR > 60, BUN/Creatinine Ratio 16.3, CBC w Diff NO MAN DIFF REQ, RBC 3.65 L, MCV 73.1 L, MCH 22.9 L, MCHC 31.3 L, RDW 17.7 H, MPV 11.0 H, Gran % 56.5, Lymphocytes % 33.8, Monocytes % 8.0, Eosinophils % 1.7, Basophils % 0, Absolute Granulocytes 2.2, Absolute Lymphocytes 1.3, Absolute Monocytes 0.3, Absolute Eosinophils 0.1, Absolute Basophils 0 Assessment/Plan Assessment: This is a 57-year-old female with past medical history significant for right lung adenocarcinoma status post resection and chemotherapy, rheumatoid arthritis , Sjogren's syndrome, fibromyalgia, chronic pain on morphine pain pump, prior herpes zoster infection, migraine headache, COPD not on home oxygen, current smoker, opiate abuse, anxiety, hypertension, insomnia, depression presented to the emergency department with chief complaint of intractable nausea and vomiting for 2 days. Vitals at the time of presentation afebrile, heart rate 65, respiratory rate 15, blood pressure 180/70, saturating at 98 on room air. Pertinent labs WBC 3.2, hemoglobin 10 and hematocrit 32, platelets 232. Sodium 140, potassium 4.4, BUN 27, creatinine 0.8, glucose 134 Troponin negative Flu negative Patient received normal saline bolus, zofran and Phenergan in the emergency room. 1. Intractable nausea and vomiting Patient presented with intractable nausea, vomiting, abdominal cramps for 2 days. Off note exposed to son who is sick with gastroenteritis. Vitals were stable in the emergency room. Electrolytes were normal. Patient will be placed under observation status in the general medicine floor for management of gastroenteritis. No other etiology was found. * Monitor vitals closely every shift * IV antiemetics Zofran, Phenergan will be switched to PO versions on discharge * Patient had generalized weakness from nausea and vomiting and was given fluids but is now feeling somewhat less weak and back at her baseline save for the nausea. She has chronic pain and weakness due to her other medical conditions. * We have encourage patient to eat and nutrional consult has suggested soft foods secondary to her denture issues but the patient would like regular diet. Patient does not have insurance to follow up on denture issues at this time. COPD not on home oxygen-patient reported shortness of breath, cough. However she is not in acute COPD exacerbation. * Given her smoking history-Will provide respiratory care, inhaler treatments. * TRC PRN Current smoker nicotine dependence-provide nicotine patch 21 mg daily Anxiety continue home medications alprazolam 0.25 mg twice daily when necessary Hypertension continue home medication of hydrochlorothiazide and lisinopril Insomnia continue zolpidem 10 mg at bedtime Right lung adenocarcinoma status post resection and chemotherapy Sjogren's syndrome, rheumatoid arthritis, fibromyalgia, chronic pain on morphine pain pump. Continue oxycodone for breakthrough pain DVT prophylaxis subcutaneous Lovenox Regular diet Full code Pain pathway Problem List: 1. Unable to eat 2. Acute gastroenteritis 3. Dehydration Pain Ratin Pain Location: widespread due to chronic med conditions Pain Goal: Pain 4 or less Pain Plan: prn Tomorrow's Labs & Rationales: to be discharged Christopher Chavarria 07/11/17 1138: Attending MD Review Statement Attending Statement Attending MD Statement: examined this patient, discuss w/resident/PA/COIL REPAIR TECHNICIAN, agreed w/resident/PA/COIL REPAIR TECHNICIAN, discussed with family, reviewed EMR data (avail), discussed with nursing, discussed with case mgmt, reviewed images, amended to note Attending Assessment/Plan: Patient tolerating breakfast this am. Encourage to have small and frequent meals. Patient can be discharged in stable condition.
[2017-07-11 10:22] LABS: ABSOLUTE GRANULOCYTE CT 2.2 /CUMM (1.4-6.5); ABSOLUTE LYMPH COUNT 1.3 /CUMM (1.2-3.4); ABSOLUTE MONOCYTE COUNT 0.3 /CUMM (0.10-0.60); BASOPHIL % 0 % (0.0-2.0); EOSINOPHIL % 1.7 % (0-5); MEAN CORPUSCULAR HGB 22.9 PG (27.0-31.0); MEAN CORPUSCULAR HGB CONC 31.3 G/DL (33.0-37.0); MEAN CORPUSCULAR VOLUME 73.1 FL (81.0-99.0); RBC DISTRIBUTION WIDTH 17.7 % (11.5-14.5); WHITE BLOOD CELL COUNT 3.9 /CUMM (4.8-10.8)
[2017-07-11 10:30] LABS: ABSOLUTE BASOPHIL COUNT 0 /CUMM (0.0-0.2); ABSOLUTE EOSINOPHIL COUNT 0.1 /CUMM (0.0-0.7); RED BLOOD CELL CT 3.65 /CUMM (4.20-5.40)
[2017-07-11 11:23] LABS: HEMATOCRIT 26.6 % (37-47)
[2017-07-11 11:26] LABS: GRANULOCYTE % 56.5 % (42.2-75.2); PLATELET COUNT 147 /CUMM (130-400)
[2017-07-11] MEDS ORDERED: ZOFRAN4 M2 PO (11:44)
[2017-07-11] MEDS ORDERED: PROMETHAZINE HC25 M3 PO (11:44)
--- NOTE | 2017-07-11 14:48 | PN- Student ---
Subjective Subjective: *Full H&P* ID: Savita Caro is a 57 y.o. F born on [birth year] w/ PMHx of R. Lung Ca. s /p resection & chemo, COPD, Fibromyalgia, Sjogrens, RA, HTN, migranes, chronic pain, shingles, anxiety, depression, & insomnia, who presented to the ER on Jul 09 w/ intractable N/V & abdominal pain. CC: Intractable nausea & vomiting for the past two days associated w/ abdominal pain. HPI: Patient reports nausea & non-bloody, bilious, green vomit that has been ongoing for the past two days, preventing her from keeping anything down. The N/ V is associated with generalized abdominal cramps/pain and decreased appetite & oral intake. Patient states that the nausea is persistent, the vomiting is aggrivated by any oral intake, and does not note any alleviating factors. The patient also had one episode of non-bloody, loose watery diarrhea, & states that her son recently had a gastroenteritis associated w/ N/V as well. Patient denies any food poisoning or recent travel history. Allergies: Clams Medications: Current Medications Sig/Brown Start time Last Medication Dose Route Stop Time Status Admin Acetaminophen 650 MG Q6P PRN 07/09 1700 DCD 07/11 PO 0832 Alprazolam 0.25 MG BID PRN 07/09 2200 DCD 07/11 PO 07/16 2159 0832 Dronabinol 10 MG BID 07/09 2200 DCD 07/11 PO 0848 Enoxaparin Sodium 40 MG DAILY 07/10 1000 DCD 07/11 SC 0832 Hydrochlorothiazide 12.5 MG DAILY 07/10 1000 DCD 07/11 PO 0831 Lisinopril 20 MG DAILY 07/10 1000 DCD 07/11 PO 0832 Nicotine 21 MG DAILY 07/09 1924 DCD 07/11 TOP 0832 Ondansetron HCl 4 MG Q6 07/10 1200 DCD 07/11 PO 1054 Oxycodone HCl 5 MG Q6P PRN 07/09 1700 DCD 07/11 PO 0832 Promethazine HCl 25 MG Q4 PRN 07/10 1015 DCD 07/11 PO 07/17 1014 1229 Sodium Chloride 1,000 ML .[id number] 07/09 1700 DC 07/10 IV 9 Zolpidem Tartrate 10 MG QPM 07/09 2199 DCD 07/10 PO 2038 PMHx: - R. Lung adenocarcinoma s/p RUL wedge resection & chemo - COPD - Fibromyalgia - Sjogrens - Rheumatoid Artheritis - HTN - Migranes - Chronic pain - Shingles - Anxiety - Depression - Insomnia - Osteoperosis - Anemia - Opiate abuse - Low BMI PSHx: - Bilateral hip replacement (2000) - Hysterectomy - RUL wedge resection for R. Lung adenocarcinoma (2004) FHx: - Mother: cervical cancer & FH of DM - Father: COPD, Rheumatoid Arthertitis, Ischemic heart disease SHx: - Current smoker since age of 14, w/ 43 pack years - Denies any alcohol or recreational drug use ROS: Patient reports abdominal pain, nausea, vomiting, and no current diarrhea, constipation, or indigestion. She reports shortness of breath, cough, chills, generalized weakness, lethargy, & one episode of chest heaviness in the morning. She denies any palpitations, or lower extremity edema. Patient reports gemeralized chronic pain as well, no findings on ROS for skin, neuro, HEENT, heme, or . Past History Family History Relations & Conditions If Any: MOTHER Cervical cancer FH: diabetes mellitus FATHER FH: COPD (chronic obstructive pulmonary disease) FH: rheumatoid arthritis Ischemic heart disease (IHD) Past History Family History Relations & Conditions If Any MOTHER Cervical cancer FH: diabetes mellitus FATHER FH: COPD (chronic obstructive pulmonary disease) FH: rheumatoid arthritis Ischemic heart disease (IHD) HOME MEDS Home Med List Alprazolam 0.25 MG TABLET 1 TAB PO BIDP PRN ANXIETY (Reported) Dronabinol (Marinol) 10 MG CAPSULE 1 CAP PO BID STIMULANT (Reported) Hydrochlorothiazide 12.5 MG CAPSULE 1 CAP PO DAILY HIGH BLOOD PRESSURE ( Reported) Lisinopril 20 MG TABLET 1 TAB PO DAILY HTN (Reported) Naproxen Sodium (Aleve) 220 MG CAPSULE 2 TAB PO DAILY PRN PAIN (Reported) Ondansetron HCl (Zofran) 4 MG TABLET 1 TAB PO Q6 NAUSEA Oxycodone HCl 5 MG TABLET 1 TAB PO Q4-6 PAIN (Reported) Promethazine HCl 25 MG TABLET 1 TAB PO Q4P PRN NAUSEA Tramadol HCl/Acetaminophen (Tramadol-Acetaminophn 37.5-325) 37.5 MG-325 MG TABLET 1 TAB PO Q6 PAIN (Reported) Zolpidem Tartrate 10 MG TABLET 1 TAB PO QPM SLEEP (Reported) Objective Objective: P/E: Vital Signs Date Time Temp Pulse Resp B/P B/P Pulse O2 O2 Flow FiO2 Mean Ox Delivery Rate 07/09 1827 98.4 56 20 156/80 100 Room Air 07/09 1704 98.5 62 20 128/70 100 Room Air 07/09 1455 97.8 65 20 168/85 97 Room Air 07/09 1312 99 Room Air 07/09 1227 97.7 53 15 180/107 98 Room Air Room Air Ms. Caro is Alert, Oriented X3, Cooperative, & in No Acute Distress. She appears seated on her bed and is visibly very thin. She has no visible rashes or bruising of the skin, mucous membranes are moist & pink, & there are no pertinent findings on P/E of HEENT. Cardiac examination reveals regular rate with Normal S1 & S2, as well as no Murmurs or palpitations. Lung sounds are clear bilaterally w/ no use of acessory muscles. Her abdomen is soft & non- distended, shedoes not report and tenderness to palpitation. No other pertinet findings on P/E. Results Results: Laboratory Tests 07/11/17 0805: Anion Gap 13, Estimated GFR > 60, BUN/Creatinine Ratio 16.3, CBC w Diff NO MAN DIFF REQ, RBC 3.65 L, MCV 73.1 L, MCH 22.9 L, MCHC 31.3 L, RDW 17.7 H, MPV 11.0 H, Gran % 56.5, Lymphocytes % 33.8, Monocytes % 8.0, Eosinophils % 1.7, Basophils % 0, Absolute Granulocytes 2.2, Absolute Lymphocytes 1.3, Absolute Monocytes 0.3, Absolute Eosinophils 0.1, Absolute Basophils 0 07/10/17 0826: Anion Gap 10, Estimated GFR > 60, BUN/Creatinine Ratio 20.0 07/09/17 1315: Lipase Cancelled 07/09/17 1310: Anion Gap 17 H, Estimated GFR > 60, BUN/Creatinine Ratio 26.3 H, Glucose 134 H, Calcium 9.7, Total Bilirubin 0.4, AST 20, ALT 20, Alkaline Phosphatase 101, Troponin I < 0.01, Total Protein 9.7 H, Albumin 4.6, Globulin 5.1 H, Albumin/ Globulin Ratio 0.9 L, Lipase 37, CBC w Diff NO MAN DIFF REQ, RBC 4.59, MCV 70.3 L, MCH 22.3 L, MCHC 31.7 L, RDW 17.3 H, MPV 9.7, Gran % 77.2 H, Lymphocytes % 16.3 L, Monocytes % 6.3, Eosinophils % 0.2, Basophils % 0, Absolute Granulocytes 2.5, Absolute Lymphocytes 0.5 L, Absolute Monocytes 0.2, Absolute Eosinophils 0, Absolute Basophils 0 07/09/17 0600: CBC w Diff Cancelled, WBC Cancelled, RBC Cancelled, Hgb Cancelled, Hct Cancelled , MCV Cancelled, MCH Cancelled, MCHC Cancelled, RDW Cancelled, Plt Count Cancelled, MPV Cancelled Microbiology 07/09 1233 NASOPHARYN: Influenza Virus A & B Rapid Smear - COMP Assessment/Plan Assessment: A/P: Ms. Caro is a 57 y.o. F w/ extensive PMHx that presented to the ED w/ a CC of intractable N/V for the past two days. 1) Nausea & Vomiting: - give normal saline for hydration - start IV antiemetics Zofran & Phenergan - admit to gen med & start DVT prophylaxis 2) Autoimune & other Chronic disorders: - Continue home medications 3) Current Smoker: - Provide patient w/ a nicotine patch 4) Chronic pain: - start patient on pain pathway 5) Low BMI & diminished appetite - Continue on Marinol 10mg 2x day - Nutrition consault
--- NOTE | 2017-07-11 17:54 | Discharge Summary ---
Visit Information Visit Dates Admission Date: 07/09/17 Discharge Date: 07/11/17 Hospital Course Course Attending Physician: Christopher Chavarria MD Primary Care Physician: Onesimo Dalton MD Hospital Course: This is a 57-year-old female with past medical history significant for right lung adenocarcinoma status post resection and chemotherapy, rheumatoid arthritis , Sjogren's syndrome, fibromyalgia, chronic pain on morphine pain pump, prior herpes zoster infection, migraine headache, COPD not on home oxygen, current smoker, opiate abuse, anxiety, hypertension, insomnia, depression presented to the emergency department with chief complaint of intractable nausea and vomiting for 2 days. Patient reports that her son was sick with nausea, vomiting, gastroenteritis. She started having nausea and vomiting for the last 2 days. She reports nonbloody, bilious, green colored vomitus, no blood in vomitus associated with decreased oral intake. She wasnt able to keep anything down. Also associated with generalized abdominal cramps. She reports one episode of loose watery diarrhea, denies any blood in stool. Denies any sick contact exposure, travel history, foot poisoning. Patient reports shortness of breath, cough, chills, generalized weakness and lethargic. Also reports chest heaviness one episode the morning of admission. Denies any palpitations. Denies any headache, weakness, sensory changes, gait or vision abnormality, lower extremity swelling. Of note patient has low BMI and paraproteinemia for years. She is on appetite stimulant Marinol 10 mg twice daily. She is current smoker one pack per day. She has history of COPD not on home oxygen. She has chronic pain from Sjogren's , rheumatoid arthritis, fibromyalgia using morphine pain pump. Denies any alcohol abuse and other illicit drug abuse. IN THE ED: Vitals at the time of presentation afebrile, heart rate 65, respiratory rate 15, blood pressure 180/70, saturating at 98 on room air. Pertinent labs WBC 3.2, hemoglobin 10 and hematocrit 32, platelets 232. Sodium 140, potassium 4.4, BUN 27, creatinine 0.8, glucose 134 Troponin negative Flu negative Patient received normal saline bolus, zofran and Phenergan in the emergency room. PATIENT WAS PLACED IN OBSERVATION FOR EVALUATION AND TREATMENT OF THE FOLLOWING 1. Intractable nausea and vomiting Patient presented with intractable nausea, vomiting, abdominal cramps for 2 days. Off note exposed to son who is sick with gastroenteritis. Vitals were stable in the emergency room. Electrolytes were normal. Patient was placed under observation status in the general medicine floor for management of gastroenteritis. Labs did not point towards any other etiology. * Monitor vitals closely every shift * IV antiemetics Zofran, Phenergan were given and were switched to PO versions on discharge * Patient had generalized weakness from nausea and vomiting and was given fluids to good effect. Over time, patient was feeling somewhat less weak and back at her baseline save for the nausea which did continue until discharge. She has chronic pain and weakness due to her other medical conditions and difficulty eating due to, as she states her hide paster calls it, medical anorexia, or the lack of appetite due to her other medical conditions. * We have encouraged patient to eat and nutrional consult has suggested soft foods secondary to her denture issues but the patient would like regular diet. She states that her dentures do not fit her properly. Patient does not have insurance to follow up on denture issues at this time. COPD not on home oxygen-patient reported shortness of breath, cough. However she is not in acute COPD exacerbation. Her O2 sats were normal. * Given her smoking history- we did provide respiratory care, inhaler treatments. * TRC PRN Current smoker nicotine dependence-provide nicotine patch 21 mg daily Anxiety continue home medications alprazolam 0.25 mg twice daily when necessary Hypertension continue home medication of hydrochlorothiazide and lisinopril Insomnia continue zolpidem 10 mg at bedtime Right lung adenocarcinoma status post resection and chemotherapy Sjogren's syndrome, rheumatoid arthritis, fibromyalgia, chronic pain on morphine pain pump. We gave her oxycodone for breakthrough pain DVT prophylaxis subcutaneous Lovenox Regular diet Full code Pain pathway Allergies: Coded Allergies: clams (UNKNOWN 07/09/17) Disposition Summary Disposition Principal Diagnosis: gastroenteritis Additional Diagnosis: na Discharge Disposition: home or self care Discharge Instructions General Discharge Information Code Status: Full Code Patient's Diet: regular, high calorie Patient's Activity: as tolerated Follow-Up Instructions/Appts: 1. PLEASE FOLLOW UP WITH YOUR PCP IN ONE WEEK Medications at Discharge Discharge Medications: Continue taking these medications: Alprazolam (Alprazolam) 0.25 MG TABLET 1 Tablet ORAL 2 x Daily as needed as needed for ANXIETY Comments: Last Taken: 07/11/17 Time: 8:30 am Zolpidem Tartrate (Zolpidem Tartrate) 10 MG TABLET 1 Tablet ORAL Every night Comments: Last Taken: 07/10/17 Time: 9:00 pm Naproxen Sodium (Aleve) 220 MG CAPSULE 2 Tablet ORAL DAILY as needed for PAIN Comments: NOT GIVEN IN HOSPITAL Hydrochlorothiazide (Hydrochlorothiazide) 12.5 MG CAPSULE 1 Capsule ORAL DAILY Qty = 90 Comments: Last Taken: 07/11/17 Time: 8:30 am Tramadol HCl/Acetaminophen (Tramadol-Acetaminophn 37.5-325) 37.5 MG-325 MG TABLET 1 Tablet ORAL EVERY SIX HOURS Comments: NOT GIVEN WHILE HOSPITALIZED Oxycodone HCl (Oxycodone HCl) 5 MG TABLET 1 Tablet ORAL EVERY 4-6 HOURS Qty = 140 Comments: Last Taken: 07/11/17 Time: 8:30 am Lisinopril (Lisinopril) 20 MG TABLET 1 Tablet ORAL DAILY Comments: Last Taken: 07/11/17 Time: 8:30 am Dronabinol (Marinol) 10 MG CAPSULE 1 Capsule ORAL TWICE DAILY Comments: Last Taken: 07/11/17 Time: 9:00 am Start taking the following new medications: Promethazine HCl (Promethazine HCl) 25 MG TABLET 1 Tablet ORAL EVERY 4 HOURS NEEDED as needed for NAUSEA Qty = 30 No Refills Ondansetron HCl (Zofran) 4 MG TABLET 1 Tablet ORAL EVERY SIX HOURS Qty = 20 No Refills Copies To: Sha ROSSI,Onesimo Johnson
== END 2017-07-11 12:56 ==
LOC: ERH 11:40 → 2NA 14:56 → ERHI 14:56 → ENRESERV 16:06 → ENTRNSPT 17:42 → 2NA 18:00 → CMPTRNSPT 18:04 → 2NA 07-10 08:36 → ENTRNSPT 07-11 12:42 → EDTRNSPTSTS 07-11 12:44 → EDTRNSPT 07-11 12:44 → CMPTRNSPT 07-11 12:55 → 2NA 07-11 12:56
PROVIDERS: Emergency Medicine; Student in an Organized Health Care Education/Training Program
DX: R11.2 Nausea with vomiting, unspecified (principal); R10.9 Unspecified abdominal pain; M06.9 Rheumatoid arthritis, unspecified; M35.00 Sjogren syndrome, unspecified; M79.7 Fibromyalgia; G89.29 Other chronic pain; G43.909 Migraine, unspecified, not intractable, without status migrainosus; J44.9 Chronic obstructive pulmonary disease, unspecified; F17.200 Nicotine dependence, unspecified, uncomplicated; F11.10 Opioid abuse, uncomplicated; F41.9 Anxiety disorder, unspecified; I10 Essential (primary) hypertension; G47.00 Insomnia, unspecified; F32.9 Major depressive disorder, single episode, unspecified; M81.0 Age-related osteoporosis without current pathological fracture; D64.9 Anemia, unspecified; Z85.118 Personal history of other malignant neoplasm of bronchus and lung
CPT/HCPCS: 36415; 82436; 87804; 87804-59; 93005; 93010; 96372; 96374; 96375; 99291; G0378; J1650; J2405; J2550; J3101

== ENCOUNTER 2017-07-20 22:29 | Emergency (ER) | payer OTHER ==
[~2017-07-20] VITALS: Ht 157.5 cm; Wt 40.8 kg
[~2017-07-20 22:29] MED LIST changes: +LISINOPRIL20 M1 PO; +MARINOL10 MG PO; +PROMETHAZINE HC25 M3 PO; +ZOFRAN4 M2 PO
[2017-07-20 23:16] LABS: ABSOLUTE BASOPHIL COUNT 0 /CUMM (0.0-0.2); ABSOLUTE EOSINOPHIL COUNT 0 /CUMM (0.0-0.7); ABSOLUTE GRANULOCYTE CT 4.8 /CUMM (1.4-6.5); ABSOLUTE LYMPH COUNT 0.8 /CUMM (1.2-3.4); ABSOLUTE MONOCYTE COUNT 0.3 /CUMM (0.10-0.60); BASOPHIL % 0 % (0.0-2.0); EOSINOPHIL % 0 % (0-5); GRANULOCYTE % 81.7 % (42.2-75.2); HEMATOCRIT 32.4 % (37-47); MEAN CORPUSCULAR HGB CONC 31.1 G/DL (33.0-37.0); MEAN CORPUSCULAR VOLUME 70.9 FL (81.0-99.0); MEAN PLATELET VOLUME 9.2 FL (7.4-10.4); PLATELET COUNT 332 /CUMM (130-400); RBC DISTRIBUTION WIDTH 17.9 % (11.5-14.5); RED BLOOD CELL CT 4.57 /CUMM (4.20-5.40); WHITE BLOOD CELL COUNT 5.9 /CUMM (4.8-10.8)
--- NOTE | 2017-07-21 00:25 | ED GI/GU/ABDOMINAL COMPLAINT ---
History of Present Illness General Chief Complaint: Nausea, Vomiting, Diarrhea Stated Complaint: +V, CONSTIPATION D/C 4 DAYS AGO FOR SAME Source: patient Exam Limitations: no limitations Vital Signs & Intake/Output Vital Signs & Intake/Output Vital Signs Date Time Temp Pulse Resp B/P B/P Pulse O2 O2 Flow FiO2 Mean Ox Delivery Rate 07/20 2256 96.1 77 18 165/92 95 Room Air ED Intake and Output 07/21 0000 07/20 1200 Intake Total Output Total Balance Patient 89 lb 15.99 oz Weight Weight Estimated Measurement Method Allergies Coded Allergies: clams (UNKNOWN 07/09/17) Triage Note: TRIAGE: PATIENT TO ER FROM HOME W/ +CONSTPITATION X GREATER THAN 5 DAYS, TAKING DUCOLAX AND MIRALAX W/O RELIEF. PATIENT DIRECTED BY MD TRAMMELL TODAY TO USE FLEET ENEMA, USED W/O RELIEF. SUDDEN ONSET VOMITTING TONIGHT W/ INTERMITTENT ABD CRAMPING AND BLOATING. REPORTS DECREASED PO INTAKE. Triage Nurses Notes Reviewed? yes ? n Is pt currently ? No Onset: Abrupt Duration: day(s): Timing: recent history Quality/Severity: cramping, moderate, sharpness Location: generalized abdomen Radiation: no radiation Activities at Onset: none No Modifying Factors: none HPI: 57-year-old female comes into the emergency room for further evaluation of general abdominal pain. Patient reports that she has been constipated and has not had a bowel movement in 5 days. She now has associated vomiting. Denies any fever. She feels very weak and dehydrated and tired. She was trying some enema and some medication to help with constipation but with no relief. She has a pain pump tension chronically. Denies any other associated symptoms. (Bear Zavala) Reconcile Medications Alprazolam 0.25 MG TABLET 1 TAB PO BIDP PRN ANXIETY (Reported) Dronabinol (Marinol) 10 MG CAPSULE 1 CAP PO BID STIMULANT (Reported) Hydrochlorothiazide 12.5 MG CAPSULE 1 CAP PO DAILY HIGH BLOOD PRESSURE ( Reported) Lisinopril 20 MG TABLET 1 TAB PO DAILY HTN (Reported) Naproxen Sodium (Aleve) 220 MG CAPSULE 2 TAB PO DAILY PRN PAIN (Reported) Ondansetron HCl (Zofran) 4 MG TABLET 1 TAB PO Q6 NAUSEA Oxycodone HCl 5 MG TABLET 1 TAB PO Q4-6 PAIN (Reported) Peg 3350/Na Sulf,Bicarb,Cl/KCl (Golytely Solution) 236-22.74G SOLN.RECON 1 KIT PO X1 PRN CONSTIPATION Polyethylene Glycol 3350 (Miralax) 17 GRAM/DOSE POWDER 17 GM PO BID CONSTIPATION mix with water, juice, soda, coffee or tea Promethazine HCl 25 MG TABLET 1 TAB PO Q4P PRN NAUSEA Tramadol HCl/Acetaminophen (Tramadol-Acetaminophn 37.5-325) 37.5 MG-325 MG TABLET 1 TAB PO Q6 PAIN (Reported) Zolpidem Tartrate 10 MG TABLET 1 TAB PO QPM SLEEP (Reported) (Pritesh ROSSI,Bart Oneill) Past History Travel History Traveled to [place] past 21 day No Medical History Any Pertinent Medical History? see below for history Neurological: migraine EENT: NONE Cardiovascular: hypertension Respiratory: COPD (not on home oxygen) Gastrointestinal: NONE Hepatic: NONE Renal: NONE Musculoskeletal: rheumatoid arthritis, fibromyalgia chronic hip pain pain pump in her right lower quadrant of abdomen Psychiatric: anxiety Endocrine: osteoporosis Blood Disorders: anemia, LOW IRON Cancer(s): lung cancer (adenocarcinoma) Other Medical Hx: History of shingles History of MRSA: No History of VRE: No History of CDIFF: No Influenza Vaccine: 04/12/17 Surgical History Surgical History: hip replacement (both. In 2000), hysterectomy, lung cancer status post right upper lobe wedge resection in 2004 Psychosocial History Who do you live with Spouse Services at Home None What is your primary language Haitian Tobacco Use: Refused to answer Family History Family History, If Any: MOTHER Cervical cancer FH: diabetes mellitus FATHER FH: COPD (chronic obstructive pulmonary disease) FH: rheumatoid arthritis Ischemic heart disease (IHD) Hx Contributory? No (Bear Zavala) Review of Systems Review of Systems Constitutional: Reports: see HPI. EENTM: Reports: no symptoms. Respiratory: Reports: no symptoms. Cardiovascular: Reports: no symptoms. GI: Reports: see HPI. Genitourinary: Reports: no symptoms. Musculoskeletal: Reports: no symptoms. Skin: Reports: no symptoms. Neurological/Psychological: Reports: no symptoms. Hematologic/Endocrine: Reports: no symptoms. Immunologic/Allergic: Reports: no symptoms. All Other Systems: Reviewed and Negative (Bear Zavala) Physical Exam Physical Exam General Appearance: well developed/nourished, alert, awake Head: atraumatic, normal appearance Eyes: Bilateral: normal appearance, EOMI. Ears, Nose, Throat, Mouth: hearing grossly normal, moist mucous membrane Neck: normal inspection Respiratory: normal breath sounds, no respiratory distress Cardiovascular: regular rate/rhythm Gastrointestinal: soft, non-tender Back: normal inspection Extremities: normal range of motion Neurologic/Psych: awake, alert, oriented x 3, normal gait Skin: intact, normal color Core Measures ACS in differential dx? No Sepsis Present: No Sepsis Focused Exam Completed? No (Bear Zavala) Progress Differential Diagnosis: appendicitis, bowel obstruction, diverticulitis, pancreatitis, PUD/GERD, perforated viscous Plan of Care: Orders Procedure Date/time Status Enema 07/21 0217 Active Add-on Test (ER Only) 07/21 0025 Active LACTIC ACID 07/20 230 Complete TROPONIN LEVEL 07/20 2230 Complete LIPASE 07/20 2230 Complete HEPATIC FUNCTION PANEL 07/20 2230 Complete CBC WITHOUT DIFFERENTIAL 07/20 2230 Complete BASIC METABOLIC PANEL 07/20 2230 Complete AMYLASE 07/20 2230 Complete EKG 07/20 2230 Active Laboratory Tests 07/20/17 2300: Anion Gap 20 H, Estimated GFR 58 L, BUN/Creatinine Ratio 24.0, Glucose 162 H, Lactic Acid 2.2 H, Calcium 9.9, Total Bilirubin 0.5, Direct Bilirubin 0.3, AST 20, ALT 12, Alkaline Phosphatase 116, Troponin I < 0.01, Total Protein 9.8 H, Albumin 4.7, Amylase 62, Lipase 52, CBC w Diff NO MAN DIFF REQ, RBC 4.57, MCV 70.9 L, MCH 22.0 L, MCHC 31.1 L, RDW 17.9 H, MPV 9.2, Gran % 81.7 H, Lymphocytes % 13.0 L, Monocytes % 5.3, Eosinophils % 0, Basophils % 0, Absolute Granulocytes 4.8, Absolute Lymphocytes 0.8 L, Absolute Monocytes 0.3, Absolute Eosinophils 0, Absolute Basophils 0 Diagnostic Imaging: Viewed by Me: CT Scan. Discussed w/RAD: CT Scan. Initial ED EKG: normal sinus rhythm, rate (77) Hand-Off Endorsed To: Pritesh ROSSI,Bart Oneill Endorsed Time: 54 Pending: CT (Bear Zavala) Radiology Impression: PATIENT: JOSE STEWART PRESENT AGE: 32 PATIENT ACCOUNT NO: [id number] : [birth year] LOCATION: [facility] ORDERING PHYSICIAN: Bart Jonas MD SERVICE DATE: 07/21/17 EXAM TYPE: CAT - CT ABD & PELVIS W/O IV CONTRAS EXAMINATION: CT ABDOMEN AND PELVIS WITHOUT CONTRAST CLINICAL INFORMATION: Left lower quadrant pain. COMPARISON: None TECHNIQUE: Multidetector volumetric imaging was performed from the superior aspect of the liver through the pubic symphysis. Sagittal and coronal reformatted images were obtained on the technologist's workstation. DLP: 875.29 mGy-cm FINDINGS: LUNG BASES: The visualized lung bases are unremarkable. LIVER, GALLBLADDER, AND BILIARY TREE: The liver is normal in size, shape, and attenuation. No focal hepatic lesion or biliary ductal dilatation is present. Small calcified granuloma at the inferior tip right lobe of liver. Right lobe liver measures 18.7 cm superior inferior. The gallbladder is unremarkable with no evidence of radiopaque gallstones, gallbladder wall thickening, or obvious pericholecystic inflammatory changes. PANCREAS: Unremarkable. SPLEEN: There are scattered small calcified granuloma within the spleen. Spleen is prominent size measuring 16.6 cm superior inferior. ADRENAL GLANDS: Unremarkable. KIDNEYS AND URETERS: The kidneys are normal in size, shape, and attenuation. No hydronephrosis, hydroureter, or calculi seen. No perinephric stranding. BLADDER: Unremarkable. GASTROINTESTINAL TRACT: The small and large bowel are unremarkable. Moderate volume of stool throughout the colon. The appendix is surgically removed. Surgical sutures seen at the tip of the cecum. ABDOMINAL WALL: No significant hernia is appreciated. LYMPH NODES: Normal. VASCULAR: Unremarkable. PELVIC VISCERA: Unremarkable. OSSEOUS STRUCTURES: Degenerative spondylosis of spine. Vacuum disc phenomenon and disc height narrowing L2 L3-L5 S1 with facet joint arthrosis. IMPRESSION: No acute abnormality CT scan abdomen and pelvis. Mild splenomegaly. DICTATED BY: Nish Mauro MD DATE/TIME DICTATED: 07/21/17124 COASTAL AND ESTUARY SPECIALIST:COLE DATE/TIME TRANSCRIBED:07/21/17124 CONFIDENTIAL, DO NOT COPY WITHOUT APPROPRIATE AUTHORIZATION. <Electronically signed in Other Vendor System> SIGNED BY: Nish Mauro MD 07/21/17 0132 (Bart Jonas MD) Departure Departure Condition: Stable Referrals: Sha ROSSI,Onesimo Johnson (PCP/Family) Departure Forms: Customer Survey General Discharge Information (Bear Zavala) Departure Disposition: HOME OR SELF CARE Clinical Impression Primary Impression: Abdominal pain Secondary Impressions: Constipation Prescriptions: Current Visit Scripts Peg 3350/Na Sulf,Bicarb,Cl/KCl (Golytely Solution) 1 KIT PO X1 PRN CONSTIPATION #1 KIT Polyethylene Glycol 3350 (Miralax) 17 GM PO BID #[id number] GM Ref 1 mix with water, juice, soda, coffee or tea PA/PLASTIC SURGERY SPECIALIST Co-Sign Statement Statement: ED Attending supervision documentation- [x] I saw and evaluated the patient. I have also reviewed all the pertinent lab results and diagnostic results. I agree with the findings and the plan of care as documented in the PA's/PLASTIC SURGERY SPECIALIST's documentation. 07/21/17, 2:20am... pt with constipation ct scan... pt resting comfortably in the ED... discussed at length with patient... pt wishes soap suds enema. pt will take golytely, followed by miralax. close follow up advised. [] I have reviewed the ED Record and agree with the PA's/PLASTIC SURGERY SPECIALIST's documentation. [] Additions or exceptions (if any) to the PAs/PLASTIC SURGERY SPECIALIST's note and plan are summarized below: [] (Pritesh ROSSI,Bart Oneill)
[2017-07-21] MEDS ORDERED: GOLYTELY SOLU4000 ML PO (01:09)
[2017-07-21] MEDS ORDERED: MIRALAX119 GM PO (01:10)
--- NOTE | 2017-07-21 01:16 | CT SCAN REPORT ---
EXAMINATION: CT ABDOMEN AND PELVIS WITH CONTRAST CLINICAL INFORMATION: Abdominal pain. No bowel movement. Vomiting. COMPARISON: CT abdomen pelvis February 04, 2013. PET/CT study December 17, 2013 TECHNIQUE: Multidetector volumetric imaging was performed of the abdomen and pelvis following IV administration of 65 mL of Optiray 320 intravenous contrast. Sagittal and coronal reformatted images were obtained on the technologist's workstation. DLP: 245.57 mGy-cm FINDINGS: LUNG BASES: Pectus excavatum. No basilar infiltrate or pleural effusion. LIVER, GALLBLADDER, AND BILIARY TREE: The liver is normal in size, shape, and attenuation. No focal hepatic lesion or biliary ductal dilatation is present. The gallbladder is unremarkable with no evidence of radiopaque gallstones, gallbladder wall thickening, or obvious pericholecystic inflammatory changes. PANCREAS: Unremarkable. SPLEEN: Unremarkable. ADRENAL GLANDS: Unremarkable. KIDNEYS AND URETERS: The kidneys are normal in size, shape, and attenuation. No hydronephrosis, hydroureter, or calculi seen. No perinephric stranding. BLADDER: Unremarkable. GASTROINTESTINAL TRACT: There is a large collection of stool in the rectum and sigmoid. This distends the rectum sigmoid at the level of the hips to a diameter of 8 cm. No significant bowel wall thickening however there is a small amount of edema in the presacral space around the rectum sigmoid raising concern for a mild stercoral colitis. There is stool throughout the remainder the colon as well but the remainder the colon is not abnormally dilated. No small bowel dilatation. The appendix is not identified. No inflammation the mesentery and right lower quadrant. ABDOMINAL WALL: No significant hernia is appreciated. LYMPH NODES: Normal. VASCULAR: Atherosclerotic vascular wall calcification of the distal aorta and iliac vessels without aneurysm. PELVIC VISCERA: Uterus is absent. OSSEOUS STRUCTURES: Neural stimulator probe in the central spinal canal with the probe tip at T11-T12. The generator is at the anterior right lower quadrant abdominal wall. Status post left total hip replacement. Degenerative joint disease of right hip with joint space narrowing spurring of the femoral head and acetabulum and subchondral cystic change of the acetabulum. IMPRESSION: Large collection of stool in the rectum sigmoid with edema around the rectum sigmoid raising concern for a mild stercoral colitis.
[2017-07-21 02:33] VITALS: BP 158/83
== END 2017-07-21 03:37 ==
LOC: ERH 22:29
PROVIDERS: Pediatrics
DX: K59.00 Constipation, unspecified (principal)
CPT/HCPCS: 74177; 93005; 93010; 96374; 96375; J2405; J2765